=== PATIENT | female | born 1980 | race African-American/Black ===

== ENCOUNTER 2020-05-17 08:19 | Emergency (ER) | payer BC, MEDICAID ==
[~2020-05-17] VITALS: Ht 165.1 cm; Wt 86.0 kg
[2020-05-17] MEDS ORDERED: SODIUM CHLORIDE 0.9% 1,000 ML IV ONE (09:11)
[2020-05-17] MEDS ORDERED: MORPHINE SULFATE 4 MG/ML CPJ (NOT FOR IM USE) IV STA (09:11)
[2020-05-17] MEDS ORDERED: ONDANSETRON HCL 4MG/2ML INJ IV STA (09:11)
[2020-05-17] MEDS ORDERED: MORPHINE SULFATE 4 MG/ML CPJ (NOT FOR IM USE) IV ONE ×2 (09:15→10:03)
[2020-05-17] MEDS ORDERED: ETOMIDATE 2MG/ML 10ML VIAL IV ONE (09:15)
[2020-05-17] MEDS ORDERED: TETANUS, DIPHTHERIA, PERTUSSIS VAC/PF 0.5ML (>7YR OLD) IM ONE (09:15)
[2020-05-17] MEDS ORDERED: CEFAZOLIN 1000MG PREMIX 50 ML IV ONE (09:15)
[2020-05-17 09:47] LABS: CHLORIDE 105 mEq/L (98-107)
[2020-05-17 09:49] LABS: BASOPHILS % 0.4 % (0.0-2.0); EOSINOPHILS % 0.4 % (0.0-5.0); HEMATOCRIT. 35.7 % (36.0-48.0); HEMOGLOBIN. 11.5 g/dL (12.0-16.0); LYMPHOCYTES % 22.7 % (20.0-50.0); MEAN CORPUSCULAR HEMOGLOBIN 23.2 pg (28.0-32.0); MEAN CORPUSCULAR VOLUME 72.1 fL (81.0-99.0); MONOCYTES % 3.7 % (2.0-8.0); NEUTROPHILS % 72.8 % (40.0-76.0); PLATELET 294 x1000/uL (130-400); RED BLOOD CELL COUNT 4.96 mill/uL (4.2-5.4); RED CELL DISTRIBUTION WIDTH 14.9 % (11.6-14.6)
[2020-05-17 09:59] LABS: PARTIAL THROMBOPLASTIN TIME 27.5 sec (23.4-31.0); PROTHROMBIN TIME 10.2 sec (9.6-11.0)
[2020-05-17 10:06] LABS: HCG SCREEN NEGATIVE
[2020-05-17] MEDS ORDERED: HYDRALAZINE 20MG/ML VIAL IV ONE ×2 (10:30→12:00)
[2020-05-17 15:37] VITALS: BP 208/104
== END 2020-05-17 15:33 | disposition short-term general hospital (02) ==
LOC: ER 08:19
DX: S89.141A Salter-Harris Type IV physeal fracture of lower end of right tibia, initial encounter for closed fracture (principal); S82.831A Other fracture of upper and lower end of right fibula, initial encounter for closed fracture; I10 Essential (primary) hypertension; W01.0XXA Fall on same level from slipping, tripping and stumbling without subsequent striking against object, initial encounter; Y93.89 Activity, other specified; Y92.014 Private driveway to single-family (private) house as the place of occurrence of the external cause
CPT/HCPCS: 27840; 36415; 73610; 80053; 82962; 84703; 85025; 85610; 85730; 86850; 86900; 86901; 90471; 90715; 93005; 96365; 96375; 96376; 99152; 99285; J0360; J0690; J2270; J2405; J3490; J7030